=== PATIENT | female | born 1935 | race Caucasian/White ===

== ENCOUNTER 2016-11-17 09:00 | Emergency (ER) | payer OTHER ==
[2016-11-17 09:15] VITALS: TEMP 99; BMI 28.3
[2016-11-17] MEDS ORDERED: NAPROXEN 500 MG TABLET (FP) PO ONE (09:19)
[2016-11-17] MEDS ORDERED: NAPROXEN 500 MG TABLET (FP) ONE (09:22)
[2016-11-17] MEDS ORDERED: RANITIDINE HCL 150 MG TABLET (FP) PO ONE (09:24)
--- NOTE | 2016-11-17 09:25 | PDOC ---
History of Present Illness - General Chief Complaint: Back Pain Stated Complaint: BACK PAIN Time Seen by Provider: 11/17/16 09:03 History Source: Patient Exam Limitations: No Limitations - History of Present Illness Initial Comments: 11/17/16 09:22 81-year-old female with history of hypertension, GERD, lumbar stenosis status post surgery several years ago presents with sciatica of the left side for one week. The patient has a known history of sciatica and reports that this feels like the exact same pain. She denies any trauma. Denies numbness or weakness. Reports that flexion of her back worsens the pain. Denies dysuria or abdominal pain or fevers. She has taken one tablet of ibuprofen 20 mg every 12 hours Past History - Past Medical History Allergies/Adverse Reactions: Allergies Allergy/AdvReac Type Severity Reaction Status Date / Time No Known Allergies Allergy Verified 11/17/16 09:02 Home Medications: Ambulatory Orders Valsartan [Diovan] 160 mg PO DAILY 02/09/12 Amlodipine Besylate 5 mg PO DAILY 07/26/16 Fluoxetine HCl [Prozac] 20 mg PO DAILY 07/26/16 Naproxen Sodium [Aleve] 220 mg PO ASDIR PRN 07/26/16 Pantoprazole Sodium 40 mg PO DAILY 07/26/16 Cyclobenzaprine HCl [Flexeril 10 mg] 10 mg PO Q8H PRN #15 tablet 11/17/16 Naproxen [Naprosyn -] 500 mg PO BID PRN #14 tablet 11/17/16 Prednisone [Deltasone -] 60 mg PO DAILY #12 tablet 11/17/16 Ranitidine HCl [Zantac] 150 mg PO BID PRN #14 tablet 11/17/16 GI Disorders: Yes HTN: Yes Psychiatric Problems: Yes (DEPRESSION) Other medical history: SPINAL STENOSIS,HERNIATED DISC - Psycho/Social/Smoking Cessation Hx Anxiety: No Suicidal Ideation: No Smoking Status: No Smoking History: Never smoked Number of Cigarettes Smoked Daily: 0 Information on smoking cessation initiated: No Hx Alcohol Use: No Drug/Substance Use Hx: No Review of Systems - Review of Systems Able to Perform ROS?: Yes Comments:: 11/17/16 09:24 GENERAL/CONSTITUTIONAL: No fever, weakness. HEAD, EYES, EARS, NOSE AND THROAT: No change in vision. No ear pain or discharge. No sore throat. CARDIOVASCULAR: No chest pain or shortness of breath. RESPIRATORY: No cough, wheezing, or hemoptysis. GASTROINTESTINAL: No abdominal pain, nausea, vomiting, diarrhea, or decreased PO intolerance. GENITOURINARY: No dysuria, frequency, or change in urination. MUSCULOSKELETAL: No joint or muscle swelling or pain. +back pain SKIN: No rash NEUROLOGIC: No headache, vertigo, loss of consciousness, or change in strength/ sensation. ENDOCRINE: No increased thirst. No abnormal weight change. HEMATOLOGIC/LYMPHATIC: No anemia, easy bleeding, or history of blood clots. ALLERGIC/IMMUNOLOGIC: No hives or skin allergy. *Physical Exam - Vital Signs Last Vital Signs Temp Pulse Resp BP Pulse Ox 99 F 77 18 132/100 98 11/17/16 09:05 11/17/16 09:05 11/17/16 09:05 11/17/16 09:05 11/17/16 09:05 - Physical Exam Comments: 11/17/16 09:25 GENERAL: Awake, alert, and fully oriented, in no acute distress. HEAD: No signs of trauma EYES: PERRLA, EOMI, sclera anicteric, conjunctiva clear ENT: Auricles normal inspection, hearing grossly normal, nares patent, oropharynx clear without exudates. NECK: Normal ROM, supple, no lymphadenopathy, JVD, or masses LUNGS: Breath sounds equal, clear to auscultation bilaterally. No wheezes, and no crackles HEART: Regular rate and rhythm, normal S1 and S2, no murmurs, rubs or gallops ABDOMEN: Soft, nontender, normoactive bowel sounds. No guarding, no rebound. No masses BACK: no spinal tenderness or step offs. TTP left lower buttocks. +Straight leg raise 45 degrees on ipsilateral side EXTREMITIES: Normal range of motion, no edema. No clubbing or cyanosis. No cords, erythema, or tenderness NEUROLOGICAL: Cranial nerves II through XII grossly intact. Normal speech, normal gait SKIN: Warm, Dry, normal turgor, no rashes or lesions noted. Medical Decision Making - Medical Decision Making 11/17/16 09:25 Vital Signs Temp Pulse Resp BP Pulse Ox 99 F 77 18 132/100 98 11/17/16 09:05 11/17/16 09:05 11/17/16 09:05 11/17/16 09:05 11/17/16 09:05 This is likely sciatica. Patient likely underdosing pain medications with ibuprofen. We'll trial naproxen and reassess. 11/17/16 10:31 The pain is somewhat alleviated with naproxen and flexeril. Will start a prednisone pack for the 5 days and have pt follow up with ortho. Pt with family. Instructions given that this may likely exacerbate GERD. Will write prescription for zantac as well. Return precautions given. Discharge diagnosis: sciatica I discussed the physical exam findings, ancillary test results and final diagnoses with the patient. I answered all of the patient's questions. The patient was satisfied with the care received and felt comfortable with the discharge plan and treatment plan. The patient will call their primary care physician within 24 hours to arrange follow-up and will return to the Emergency Department with any new, persistant or worsening symptoms. *DC/Admit/Observation/Transfer Diagnosis at time of Disposition: Sciatica Qualifiers: Laterality: left Qualified Code(s): M54.32 - Sciatica, left side - Discharge Dispostion Disposition: HOME Condition at time of disposition: Fair Admit: No - Prescriptions Prescriptions: Prednisone [Deltasone -] 60 mg PO DAILY #12 tablet Cyclobenzaprine HCl [Flexeril 10 mg] 10 mg PO Q8H PRN #15 tablet PRN Reason: Back Pain Naproxen [Naprosyn -] 500 mg PO BID PRN #14 tablet PRN Reason: Back Pain Ranitidine HCl [Zantac] 150 mg PO BID PRN #14 tablet PRN Reason: Acid Reflux - Referrals Referrals: Timoteo Serna MD [Staff Physician] - - Patient Instructions Printed Discharge Instructions: DI for Back Pain With Sciatica, Sciatica ( Alternative Therapy) Additional Instructions: Please take 500 mg naproxen every 12 hours as needed for pain. For additional relief, you may take a tablet of flexeril every 8 hours as needed. Please take 60 mg prednisone for the next 4 days. These medications may cause acid reflux. Continue to take your protonix and you may take 150 mg zantac every 12 hours as needed. Follow up with orthopedics. Call to schedule an appointment.
[2016-11-17] MEDS ORDERED: RANITIDINE HCL 150 MG TABLET (FP) ONE (09:27)
[2016-11-17] MEDS ORDERED: CYCLOBENZAPRINE HCL 10 MG TABLET (FP) PO ONE (09:49)
[2016-11-17] MEDS ORDERED: CYCLOBENZAPRINE HCL 10 MG TABLET (FP) ONE (09:49)
[2016-11-17 10:16] VITALS: BP 146/87; PULSE 70
[2016-11-17] MEDS ORDERED: predniSONE 20 MG TABLET (UD) PO ONE (10:31)
[2016-11-17] MEDS ORDERED: predniSONE 20 MG TABLET (UD) ONE (10:33)
== END 2016-11-17 10:43 | disposition home or self-care (01) ==
LOC: FER 09:00
DX: M54.32 Sciatica, left side (principal); I10 Essential (primary) hypertension; K21.9 Gastro-esophageal reflux disease without esophagitis; M48.06 Spinal stenosis, lumbar region; F32.9 Major depressive disorder, single episode, unspecified
CPT/HCPCS: 99282-25

== ENCOUNTER 2017-04-20 11:15 | Emergency (ER) | payer OTHER ==
[2017-04-20 11:23] VITALS: BP 120/83; PULSE 70; TEMP 98.4; BMI 28.9
--- NOTE | 2017-04-20 11:42 | PDOC ---
History of Present Illness - General Chief Complaint: Respiratory Stated Complaint: COUGH Time Seen by Provider: 04/20/17 11:21 History Source: Patient Exam Limitations: No Limitations - History of Present Illness Initial Comments: 04/20/17 13:30 This patient is an 82-year-old female with a history of hypertension, GERD who presents emergency department with a complaint of cough times several weeks. Patient states her symptoms began as a post nasal drip, and worsened. Patient states she has difficulty sleeping as a result of her coughing. She was on vacation in the ears were general an, cough is severe enough that she was seen by the physician. She was given cough syrup, and azithromycin. She denies fevers, chills. She denies chest pain. She does state that she has muscular lower chest pain related to coughing. She denies lower extremity edema. She saw her primary care physician last and has an appointment on Thursday. She denies ill contacts (with the exception of her dogs) disease. PMH: Hypertension PSH: Patient's: Please see the rest of the chart ALL: NKDA Social: denies tobacco use GENERAL/CONSTITUTIONAL: No: fever, chills, weakness, loss of appetite. HEAD, EYES, EARS, NOSE AND THROAT: No: change in vision, ear pain, discharge, sore throat, throat swelling. CARDIOVASCULAR: No: chest pain, lightheadedness, palpitations, syncope RESPIRATORY: Yes: cough, shortness of breath, No: wheezing, hemoptysis, stridor. GASTROINTESTINAL: No: nausea, vomiting, diarrhea, abdominal cramping, rectal bleeding, constipation. GENITOURINARY: No: dysuria, hematuria, frequency, urgency, flank pain. MUSCULOSKELETAL: No: back pain, neck pain, joint pain, muscle swelling or pain SKIN: No: lesions, pallor, rash or easy bruising. NEUROLOGIC: No: headache, vertigo, paresthesias, weakness ENDOCRINE: No: unexplained weight gain or loss HEMATOLOGIC/LYMPHATIC: No: anemia, easy bleeding, swelling nodes. GENERAL: The patient is in no acute distress. HEAD: Normal with no signs of trauma. EYES: PERRLA, EOMI, sclera anicteric, conjunctiva clear. ENT: Ears normal, nares patent, oropharynx clear without exudates. Moist mucous membranes. NECK: Normal range of motion, supple without lymphadenopathy, JVD, or masses. LUNGS: Breath sounds equal, clear to auscultation bilaterally. No wheezes, and no crackles. HEART:Regular rate and rhythm, normal S1 and S2 without murmur, rub or gallop. ABDOMEN: Soft, nontender, normoactive bowel sounds. No guarding, no rebound. No masses palpable. EXTREMITIES: Normal range of motion, no edema. No clubbing or cyanosis. No erythema, or tenderness. NEUROLOGICAL: Cranial nerves II through XII grossly intact. Normal speech. No focal neurological deficits. MUSCULOSKELETAL: Back non-tender to palpation, no CVA tenderness SKIN: Warm, Dry, normal turgor, no rashes or lesions noted. Past History - Past Medical History Allergies/Adverse Reactions: Allergies Allergy/AdvReac Type Severity Reaction Status Date / Time No Known Allergies Allergy Verified 04/20/17 11:18 Home Medications: Ambulatory Orders Valsartan [Diovan] 160 mg PO DAILY 02/09/12 Amlodipine Besylate 5 mg PO DAILY 07/26/16 Fluoxetine HCl [Prozac] 20 mg PO DAILY 07/26/16 Pantoprazole Sodium 40 mg PO DAILY 07/26/16 Benzonatate [Tessalon Pearls -] 100 mg PO TID PRN #21 capsule 04/20/17 Guaifenesin [Mucinex -] 600 mg PO BID #14 tablet.er 04/20/17 Promethazine HCl/Codeine [Prometh-Codein 6.25-10 mg/5 ml] 5 ml PO ASDIR PRN GI Disorders: Yes (GERD) HTN: Yes Psychiatric Problems: Yes (DEPRESSION) - Psycho/Social/Smoking Cessation Hx Anxiety: No Suicidal Ideation: No Smoking Status: No Smoking History: Former smoker Have you smoked in the past 12 months: No Number of Cigarettes Smoked Daily: 0 Information on smoking cessation initiated: No Hx Alcohol Use: No Drug/Substance Use Hx: No *Physical Exam - Vital Signs Last Vital Signs Temp Pulse Resp BP Pulse Ox 98.4 F 70 18 120/83 98 04/20/17 11:15 04/20/17 11:15 04/20/17 11:15 04/20/17 11:15 04/20/17 11:15 Medical Decision Making - Medical Decision Making 04/20/17 13:33 PT presents with cough and no other sings of illness Will do x ray Will re assess X ray negative Will: start another medication for cough Will ask pt to keep her follow up with her PMD Will ask her to return to the ER for fevers,. chills *DC/Admit/Observation/Transfer Diagnosis at time of Disposition: Cough - Discharge Dispostion Disposition: HOME Condition at time of disposition: Stable Admit: No - Prescriptions Prescriptions: Guaifenesin [Mucinex -] 600 mg PO BID #14 tablet.er Benzonatate [Tessalon Pearls -] 100 mg PO TID PRN #21 capsule PRN Reason: Cough - Referrals Referrals: Malorie Luna MD [Primary Care Provider] - - Patient Instructions Printed Discharge Instructions: DI for Cough -- Adult, Cough (Alternative Therapy) Additional Instructions: Miss Cuadra Thank you for coming in to the ER today Please try new medication for your cough Your chest x ray does not appear to show a pneumonia Please keep your follow up with Dr Teofilo Weaver
== END 2017-04-20 13:50 | disposition home or self-care (01) ==
LOC: FER 11:15
DX: R05 Cough (principal); I10 Essential (primary) hypertension; K21.9 Gastro-esophageal reflux disease without esophagitis; F32.9 Major depressive disorder, single episode, unspecified
CPT/HCPCS: 71020-TC; 99283-25

== ENCOUNTER 2018-09-27 06:07 | Day surgery (SDC) | payer OTHER ==
[2018-09-23 13:44] VITALS: BMI 29.2
[2018-09-27] MEDS ORDERED: LIDOCAINE HCL/PF 2% SDV 5ML VIAL ONE (07:54)
[2018-09-27] MEDS ORDERED: PROPOFOL 20 ML ONE ×3 (07:55)
[2018-09-27] MEDS ORDERED: MIDAZOLAM HCL 2 MG/2 ML SINGLE DOSE VIAL ONE (07:55)
--- NOTE | 2018-09-27 11:10 | OP ---
Operative Note - Note: Operative Date: 09/27/18 Pre-Operative Diagnosis: Left renal stone Operation: Left ESWL Findings: 14 mm lower pole Left renal stone Post-Operative Diagnosis: Same as Pre-op Surgeon: Radhames Blanco Anesthesia: Fractional Estimated Blood Loss (mls): 0
[2018-09-27 12:13] VITALS: BP 134/55; PULSE 71; TEMP 97.4
--- NOTE | 2018-09-27 19:38 | OP ---
DATE OF OPERATION: 09/27/2018 PREOPERATIVE DIAGNOSIS: Left renal stone. POSTOPERATIVE DIAGNOSIS: Left renal stone. PROCEDURE: Left extracorporeal shock wave lithotripsy. ATTENDING: Radhames Dowling MD ANESTHESIA: General. DESCRIPTION OF OPERATION: The patient was brought in the operating room, placed in supine position on the operating room table. Ultrasonography and fluoroscopy were performed. A 14-mm left lower pole stone was identified. Anesthesia and preoperative antibiotics were then administered. Shock wave lithotripsy was then performed. No complications were noted. The disposition of the patient was to the recovery room. Linus [id number]
== END 2018-09-27 11:30 | disposition home or self-care (01) ==
LOC: JASU-SURG 06:07
PROVIDERS: ATTEND Urology
PROC: 0TF4XZZ Fragmentation in Left Kidney Pelvis, External Approach (ICD-10-PCS; principal; 2018-09-27 08:00)
DX: N20.0 Calculus of kidney (principal)

== ENCOUNTER 2018-10-11 06:20 | Day surgery (SDC) | payer OTHER ==
[2018-10-11 07:06] VITALS: TEMP 98
[2018-10-11] MEDS ORDERED: MIDAZOLAM HCL 2 MG/2 ML SINGLE DOSE VIAL ONE (08:27)
--- NOTE | 2018-10-11 09:00 | OP ---
Operative Note - Note: Operative Date: 10/11/18 Pre-Operative Diagnosis: Right renal stone Operation: Right ESWL Findings: x2 5 mm stones of the Right kidney lower pole Post-Operative Diagnosis: Same as Pre-op Surgeon: Radhames Blanco Anesthesia: Fractional Estimated Blood Loss (mls): 0 Operative Report Dictated: Yes
[2018-10-11] MEDS ORDERED: ACETAMINOPHEN 325 MG TABLET (FP) PO PRN (09:26)
[2018-10-11] MEDS ORDERED: ONDANSETRON 4 MG/2 ML VIAL IVPUSH PRN (09:26)
[2018-10-11] MEDS ORDERED: LACTATED RINGERS SOLUTION 1,000 ML IV SCH (09:30)
[2018-10-11 10:46] VITALS: BP 131/75; PULSE 67
--- NOTE | 2018-10-12 09:43 | OP ---
DATE OF OPERATION: 10/11/2018 PREOPERATIVE DIAGNOSIS: Right renal stone. POSTOPERATIVE DIAGNOSIS: Right renal stone. PROCEDURE: Right extracorporeal shockwave lithotripsy. ATTENDING: Radhames Dowling MD ANESTHESIA: Fractional. OPERATION: Patient was brought in the operating room, placed in the supine position on the operating room table. Ultrasonography and fluoroscopy were performed. Two stones were found in the lower pole of the right kidney, each measuring 5 mm. Anesthesia and preoperative antibiotics were then administered. Shockwave lithotripsy was then performed. No complications were noted. The disposition of the patient was to the recovery room. Linus [id number]
== END 2018-10-11 10:47 | disposition home or self-care (01) ==
LOC: JASU-SURG 06:20
PROVIDERS: ATTEND Urology
PROC: 0TF3XZZ Fragmentation in Right Kidney Pelvis, External Approach (ICD-10-PCS; principal; 2018-10-11 08:00)
DX: N20.0 Calculus of kidney (principal)

== ENCOUNTER 2019-06-22 12:44 | Emergency (ER) | payer OTHER ==
[2019-06-22 13:03] VITALS: BP 152/68; PULSE 81; BMI 26.5
--- NOTE | 2019-06-22 14:43 | PDOC ---
History of Present Illness - General Chief Complaint: Injury Stated Complaint: FALL,INJURY Time Seen by Provider: 06/22/19 14:43 History Source: Patient Exam Limitations: No Limitations - History of Present Illness Initial Comments: 84 year old female with PMH HTN presented to ED for fall with head injury. Pt reported she was walking the dog, accidentally tripped over something on the ground, and fell head first into a wrought-iron fence. She denied LOC, vomiting , chest pain, shortness of breath, lightheadedness, palpitations or any prodromal symptoms. Pt reported unknown last tetanus. Past History - Past Medical History Allergies/Adverse Reactions: Allergies Allergy/AdvReac Type Severity Reaction Status Date / Time No Known Allergies Allergy Verified 06/22/19 13:03 Home Medications: Ambulatory Orders Fluoxetine HCl [Prozac] 20 mg PO DAILY 07/26/16 Pantoprazole Sodium 40 mg PO DAILY 07/26/16 Losartan Potassium [Cozaar -] 50 mg PO DAILY 09/23/18 Multivitamin [One-Daily Multi-Vitamin] 1 each PO DAILY 09/27/18 Cephalexin [Keflex] 500 mg PO BID #14 capsule 06/22/19 Cephalexin [Keflex] 500 mg PO QID 7 Days #28 capsule 06/22/19 Ferrous Sulfate [Iron] 325 mg PO ASDIR 06/22/19 Psychiatric Problems: Yes (DEPRESSION) - Surgical History Orthopedic Surgery: Yes (ACHILLES TENDON SX LEFT , TKR LEFT) - Psycho Social/Smoking Cessation Hx Smoking Status: No Smoking History: Never smoked Have you smoked in the past 12 months: No Number of Cigarettes Smoked Daily: 0 If you are a former smoker, when did you quit?: 20 YEARS AGO Hx Alcohol Use: No Drug/Substance Use Hx: No Substance Use Type: None Hx Substance Use Treatment: No Review of Systems - Review of Systems Able to Perform ROS?: Yes Comments:: ROS General: denied fever, chills, generalized weakness. HEENT: denied sore throat, rhinorrhea, ear pain. Cardiovascular: denied chest pain, palpitations, syncope, diaphoresis. Respiratory: denied shortness of breath, cough, sputum production, hemoptysis. Gastrointestinal: denied abdominal pain, nausea, vomiting, diarrhea, constipation, blood in stool. Genitourinary: denied dysuria, increased urinary frequency, hematuria, urinary incontinence, flank pain. Back: denied back pain. Musculoskeletal: denied joint pain, muscle pain, joint swelling. Neurological: admitted to headache. denied dizziness, numbness, tingling, weakness. Integumentary: admitted to laceration. denied rash, abrasion. Hematologic/Lymphatic: denied bruising or bleeding. Constitutional: Well-nourished, Well-developed, appearing stated age. Airway: intact Breathing: bilateral breath sounds Circulation: 2+ carotid pulse B/L HEENT: 8 cm laceration starting at frontal scalp, extending to the forehead above the eyebrow, galea not intact, skull visualized. No facial bones tenderness to palpation. No manuel sign. No raccoon eyes. EOMI. PERRLA. Neck: supple. Full ROM. no midline c-spine tenderness to palpation. No step offs. Cardiovascular: regular heart rhythm. no murmurs. no pericardial friction rub. Chest wall: no seatbelt sign. No tenderness to palpation of anterior chest wall. No deformity to anterior chest wall. Respiratory: clear to auscultation bilaterally. no crackles, rhonchi or wheezing. no stridor. Gastrointestinal: soft, nontender. normal bowel sounds. no rebound, guarding, masses. No ecchymoses. Back: no midline T-spine or L-spine tenderness to palpation. No step offs. Pelvis: lower extremities equal in length without external rotation. No hip tenderness to palpation. Extremities: peripheral pulses intact. no lower extremity edema. Neurological: CN 2-12 grossly intact. moves all four extremities. Psych: awake, alert, oriented x3. follows commands. answers questions appropriately. *Physical Exam - Vital Signs Last Vital Signs Temp Pulse Resp BP Pulse Ox 81 18 152/68 98 06/22/19 12:45 06/22/19 12:45 06/22/19 12:45 06/22/19 12:45 ED Treatment Course - LABORATORY CBC & Chemistry Diagram: 06/22/19 15:30 06/22/19 15:30 Medical Decision Making - Medical Decision Making 84 year old female with above PMH presented to ED for mechanical fall with head injury today. Initial Vital Signs Pulse Resp BP Pulse Ox 81 18 152/68 98 06/22/19 12:45 06/22/19 12:45 06/22/19 12:45 06/22/19 12:45 No tachycardia. No tachypnea. Hypertensive. No hypoxia on room air. EKG performed at 1503: rate 77, regular rhythm, normal axis, normal intervals, flipped T in III. -No prior EKG image to compare Consult: Plastics - Dr. Mcpherson -I spoke with Dr. Mcpherson on the phone, he reported he can come to repair the lac around 1730 -Pt and family informed, reported they agree with plan for care, will wait for plastics to arrive Discontinued Medications Generic Name Dose Route Start Last Admin Trade Name Cornelia PRN Reason Stop Dose Admin Acetaminophen 1,000 mg 06/22/19 15:55 06/22/19 16:09 Ofirmev Injection - IVPB 06/22/19 15:56 1,000 mg ONCE ONE Administration Cefazolin Sodium/Dextrose 2 gm 06/22/19 15:45 06/22/19 15:46 Ancef 2 Gm Premixed Ivpb - IVPB 06/22/19 15:46 2 gm ONCE ONE Administration Diphtheria/Tetanus/Acell Pertussis 0.5 ml 06/22/19 15:31 06/22/19 15:36 Boostrix - IM 06/22/19 15:32 0.5 ml .ONCE ONE Administration 06/22/19 15:56 CT head report: Name: [facility] DEPARTMENT OF RADIOLOGY Phys: Anna Osborne MD : [id number] Age: 84 Sex: F [facility] Acct: [id number] Loc: [address] Exam Date: 06/22/19 Status: [place] [id number] Unit Number: [id number] EXAM#: TYPE/EXAM: RESULT: [id number] CT/HEAD CT WITHOUT CONTRAST CT scan of the brain c-. Status post fall, large laceration. Comparison study. None Findings. Serial axial images of the brain were obtained from foramen magnum to the cranial vertex without intravenous contrast with coronal, sagittal reconstruction.. Left anterior frontal scalp injury without skull fracture. There is no evidence of acute subarachnoid hemorrhage, acute intra-axial or extra-axial fluid collection consistent with subdural or epidural hematoma. No mass effect, midline shift, acute territorial ischemic changes, herniation or edema is present. Normal adams matter white matter differentiation. Age-related loss of volume of the brain parenchyma is observed, associated with moderate supratentorial chronic white matter microangiopathic ischemic changes. Chronic ischemic changes noted in bilateral basal ganglia.. Examination of the bone windows show no fracture. The visualized paranasal sinuses and mastoid air cells are clear. Nonspecific mucoperiosteal thickening in the right matter sinus. The nasal septum is dated to the right side Symmetrical ocular globes. Unremarkable retro-orbital soft tissues. Status post cataract surgeries Impression. No evidence of acute intracranial hemorrhage, edema, midline shift, mass effect, or skull fracture. No CT evidence of acute territorial infarct. Moderate diffuse supratentorial periventricular, centrum semiovale chronic white matter microangiopathic ischemic changes. Chronic basal ganglia ischemic changes. Hypodense foci in the basal ganglia may be related coexisting perivascular spaces. Reported By: Stoney Pierce MD 06/22/19 1405 Pt now reporting Right sided rib pain. Imaging ordered: CXR, R rib series, pelvis XR 06/22/19 16:25 CBC WBC 7.7 K/mm3 (4.0-10.0) 06/22/19 15:30 RBC 4.75 M/mm3 (3.60-5.2) 06/22/19 15:30 Hgb 13.0 GM/dL (10.7-15.3) 06/22/19 15:30 Hct 39.9 % (32.4-45.2) 06/22/19 15:30 MCV 84.0 fl (80-96) 06/22/19 15:30 MCH 27.4 pg (25.7-33.7) 06/22/19 15:30 MCHC 32.6 g/dl (32.0-36.0) 06/22/19 15:30 RDW 25.4 % (11.6-15.6) H 06/22/19 15:30 Plt Count 268 K/MM3 (134-434) 06/22/19 15:30 MPV 6.3 fl (7.5-11.1) L 06/22/19 15:30 Absolute Neuts (auto) 5.5 K/mm3 (1.5-8.0) 06/22/19 15:30 Neutrophils % 71.6 % (42.8-82.8) 06/22/19 15:30 Lymphocytes % 17.7 % (8-40) 06/22/19 15:30 Monocytes % 7.6 % (3.8-10.2) 06/22/19 15:30 Eosinophils % 2.5 % (0-4.5) 06/22/19 15:30 Basophils % 0.6 % (0-2.0) 06/22/19 15:30 Nucleated RBC % 0 % (0-0) 06/22/19 15:30 No leukocytosis. No anemia. CMP Sodium 140 mmol/L (136-145) 06/22/19 15:30 Potassium 3.7 mmol/L (3.5-5.1) 06/22/19 15:30 Chloride 106 mmol/L (98-107) 06/22/19 15:30 Carbon Dioxide 24 mmol/L (21-32) 06/22/19 15:30 Anion Gap 10 MMOL/L (8-16) 06/22/19 15:30 BUN 21.0 mg/dL (7-18) H 06/22/19 15:30 Creatinine 0.8 mg/dL (0.55-1.3) 06/22/19 15:30 Est GFR (CKD-EPI)AfAm 77.37 06/22/19 15:30 Est GFR (CKD-EPI)NonAf 66.76 06/22/19 15:30 Random Glucose 89 mg/dL (74-106) 06/22/19 15:30 Calcium 8.8 mg/dL (8.5-10.1) 06/22/19 15:30 Total Bilirubin 0.4 mg/dL (0.2-1) 06/22/19 15:30 AST 22 U/L (15-37) 06/22/19 15:30 ALT 23 U/L (13-61) 06/22/19 15:30 Alkaline Phosphatase 77 U/L (45-117) 06/22/19 15:30 Creatine Kinase 50 U/L (26-192) 06/22/19 15:30 Troponin I < 0.02 ng/ml (0.00-0.05) 06/22/19 15:30 Total Protein 6.6 g/dl (6.4-8.2) 06/22/19 15:30 Albumin 3.7 g/dl (3.4-5.0) 06/22/19 15:30 No electrolyte abnormalities. No KIMBERLY. No transaminitis. Troponin wnl. 06/22/19 18:34 Dr. Mcpherson has arrived. Imaging reviewed by myself and Dr. Osborne, no rib fractures noted, no hip dislocations, no hip fracture. -Pending official reports 06/22/19 19:00 Laceration in process of being repaired by Dr. Mcpherson, who advised follow up in his office in 5-7 days (Thu// of next week). He advised no water contact for 48 hours, and to apply bacitracin multiple times a day. Pt signed out to night resident. To be discharged after laceration repair is complete. Discharge medications: I spoke with the pt's daughter about wound care and head injury precautions. She reported understanding and agreed with plan for care. Discharge - Discharge Information Problems reviewed: Yes Clinical Impression/Diagnosis: Scalp laceration Qualifiers: Encounter type: initial encounter Qualified Code(s): S01.01XA - Laceration without foreign body of scalp, initial encounter Forehead laceration Qualifiers: Encounter type: initial encounter Qualified Code(s): S01.81XA - Laceration without foreign body of other part of head, initial encounter Fall Qualifiers: Encounter type: initial encounter Qualified Code(s): W19.XXXA - Unspecified fall, initial encounter Condition: Improved Disposition: HOME - Additional Discharge Information Prescriptions: Cephalexin [Keflex] 500 mg PO QID 7 Days #28 capsule Cephalexin [Keflex] 500 mg PO BID #14 capsule - Follow up/Referral Referrals: Morro Hedrick MD [Primary Care Provider] - Jignesh Mcpherson MD [Staff Physician] - - Patient Discharge Instructions Patient Printed Discharge Instructions: DI for Laceration Repair of the Scalp, DI for Laceration Repair -- Complex Suture Additional Instructions: Follow up with your primary care doctor within 3 days. Your care is not complete until you follow up. Bring all paperwork given to you today to your appointment. Follow up with Dr. Mcpherson in 5-7 days - next week thursday or thursday. Take Tylenol over the counter for pain. Take as advised on label. Take prescription as indicated on label. Return to the Emergency Department for increasing pain, visual changes, numbness , tingling, weakness, chest pain, shortness of breath, vomiting, change in mental status or any other new, worsening or concerning symptoms. Wound Care: Keep the affected wound 100% clean and dry for 42 hours. Cover the affected area with a plastic bag/shower cap in the shower. After that period change the dressing daily, and apply bacitracin multiple times a day. When in the shower just let the water run over the area, do not scrub, you do not need soap. Do not submerge yourself in any water (bath, pool, garcia, ocean) until the stitches are removed. Return to the Emergency Department or see your Primary Care Doctor in 7-10 days to have the stitches removed. - Post Discharge Activity
[2019-06-22] MEDS ORDERED: DIPHTH,PERTUSS(ACELL),TET 0.5 ML DISP.SYRIN IM ONE ×2 (15:31→15:33)
[2019-06-22 15:41] LABS: BASO % 0.6 % (0-2.0); EOS % 2.5 % (0-4.5); HEMATOCRIT 39.9 % (32.4-45.2); LYMPH % 17.7 % (8-40); MCH 27.4 pg (25.7-33.7); MCHC 32.6 g/dl (32.0-36.0); MEAN PLT VOLUME 6.3 fl (7.5-11.1); MONO % 7.6 % (3.8-10.2); NEUT % 71.6 % (42.8-82.8); PLATELET COUNT 268 K/MM3 (134-434); RBC 4.75 M/mm3 (3.60-5.2); RDW 25.4 % (11.6-15.6); WHITE BLOOD COUNT 7.7 K/mm3 (4.0-10.0)
[2019-06-22] MEDS ORDERED: CEFAZOLIN 1 GM/D5W 2 GM/100 ML BAG ONE (15:41)
[2019-06-22] MEDS ORDERED: ceFAZolin 2 GRAM PREMIX BAG IVPB ONE (15:45)
[2019-06-22] MEDS ORDERED: ACETAMINOPHEN 1000 MG/100 ML VIAL (NON FORMULARY) IVPB ONE (15:55)
--- NOTE | 2019-06-22 16:00 | PDOC ---
Attending Attestation - Resident Resident Name: Maribell Andrews - ED Attending Attestation I have performed the following: I have examined & evaluated the patient, The case was reviewed & discussed with the resident, I agree w/resident's findings & plan, Exceptions are as noted - HPI HPI: 06/22/19 15:56 Ms. Cuadra is an 84 yo F who presents to the ER via EMS s/p mechanical fall She has a h/o HTN and was in her usual state of health today She was walking her dog when she accidentally tripped, fell forward and struck her face on a wrought-iron fence. She denied LOC, vomiting, chest pain, shortness of breath, lightheadedness, palpitations or any prodromal symptoms. Pt denies visual changes, eye irritation, or eye injury - Physicial Exam PE: 06/22/19 15:58 GENERAL: The patient is in no acute distress, A&O x 3 HEAD: (+) head trauma EYES: PERRLA, EOMI ENT: Ears normal, nares patent, oropharynx clear without exudates. Moist mucous membranes. NECK: Normal range of motion, supple, no midline tenderness to palpation LUNGS: Breath sounds equal, clear to auscultation bilaterally HEART: Regular rate and rhythm, normal S1 and S2 without murmur, rub or gallop. ABDOMEN: Soft, nontender EXTREMITIES: Normal range of motion, pelvis stable NEUROLOGICAL: Cranial nerves II through XII grossly intact. Normal speech. No focal neurological deficits. MUSCULOSKELETAL: Back non-tender to palpation, no CVA tenderness SKIN: 10 cm vertical laceration of the forehead through galea down to the bone, no active bleeding noted - Medical Decision Making 06/22/19 16:00 Laboratory Tests 06/22/19 15:30 WBC 7.7 Hgb 13.0 Hct 39.9 Plt Count 268 EKG - NSR rate of 77 bpm, axis nml, intervals nml, no st elevation or depression , poor R wave progression CT head- No acute intracranial hemorrhage, no fracture seen, chronic microvascular ischemic changes seen 06/22/19 16:[address] Mcpherson He will assess and repair this patient in the ER given how extensive her laceration is Ancef given Dr. Harris has repaired this patient's laceration Pt tolerated this well Will discharge to home Follow up with Dr Mcpherson in 7-10 days Clinical impression: Mechanical fall Head trauma laceration
[2019-06-22] MEDS ORDERED: ACETAMINOPHEN INJECTION 100 ML IVPB ONE (16:08)
[2019-06-22 16:13] LABS: ALBUMIN 3.7 g/dl (3.4-5.0); ALK PHOS 77 U/L (45-117); ANION GAP 10 MMOL/L (8-16); BILIRUBIN,TOTAL 0.4 mg/dL (0.2-1); CALCIUM 8.8 mg/dL (8.5-10.1); CHLORIDE 106 mmol/L (98-107); CO2 24 mmol/L (21-32); CREATININE 0.8 mg/dL (0.55-1.3); GLUCOSE,RANDOM 89 mg/dL (74-106); POTASSIUM 3.7 mmol/L (3.5-5.1); SGOT/AST 22 U/L (15-37); SGPT/ALT 23 U/L (13-61); SODIUM 140 mmol/L (136-145); TOT PROT 6.6 g/dl (6.4-8.2)
[2019-06-22] MEDS ORDERED: LIDOCAINE 1%/EPI 1:100000 (20 ML MULTI DOSE VIAL) ONE (18:33)
[2019-06-22] MEDS ORDERED: LIDOCAINE 1%/EPI 1:100000 (20 ML MULTI DOSE VIAL) IJ ONE (18:33)
--- NOTE | 2019-06-22 19:57 | PDOC ---
*Physical Exam - Vital Signs Last Vital Signs Temp Pulse Resp BP Pulse Ox 81 18 152/68 98 06/22/19 12:45 06/22/19 12:45 06/22/19 12:45 06/22/19 12:45 ED Treatment Course - LABORATORY CBC & Chemistry Diagram: 06/22/19 15:30 06/22/19 15:30 - ADDITIONAL ORDERS Additional order review: Laboratory Results 06/22/19 15:30 Sodium 140 Potassium 3.7 Chloride 106 Carbon Dioxide 24 Anion Gap 10 BUN 21.0 H Creatinine 0.8 Est GFR (CKD-EPI)AfAm 77.37 Est GFR (CKD-EPI)NonAf 66.76 Random Glucose 89 Calcium 8.8 Total Bilirubin 0.4 AST 22 ALT 23 Alkaline Phosphatase 77 Creatine Kinase 50 Troponin I < 0.02 Total Protein 6.6 Albumin 3.7 06/22/19 15:30 RBC 4.75 MCV 84.0 MCHC 32.6 RDW 25.4 H MPV 6.3 L Neutrophils % 71.6 Lymphocytes % 17.7 Monocytes % 7.6 Eosinophils % 2.5 Basophils % 0.6 - Medications Given in the ED: ED Medications Discontinued Medications Generic Name Dose Route Start Last Admin Trade Name Freq PRN Reason Stop Dose Admin Acetaminophen 1,000 mg 06/22/19 15:55 06/22/19 16:09 Ofirmev Injection - IVPB 06/22/19 15:56 1,000 mg ONCE ONE Administration Cefazolin Sodium/Dextrose 2 gm 06/22/19 15:45 06/22/19 15:46 Ancef 2 Gm Premixed Ivpb - IVPB 06/22/19 15:46 2 gm ONCE ONE Administration Diphtheria/Tetanus/Acell Pertussis 0.5 ml 06/22/19 15:31 06/22/19 15:36 Boostrix - IM 06/22/19 15:32 0.5 ml .ONCE ONE Administration Lidocaine/Epinephrine 10 ml 06/22/19 18:33 06/22/19 18:45 Xylocaine 1%-Epi 1:100,000 IJ 06/22/19 18:34 1 applic ONCE ONE Administration Medical Decision Making - Medical Decision Making 06/22/19 19:[address] Andrews. Patient is an 84 yo female s/p mechanical fall earlier today. Patient evaluated by plastics with suture closure and will f/u in office. No concern for further process and discharging to home. Discharge - Discharge Information Problems reviewed: Yes Clinical Impression/Diagnosis: Scalp laceration Qualifiers: Encounter type: initial encounter Qualified Code(s): S01.01XA - Laceration without foreign body of scalp, initial encounter Forehead laceration Qualifiers: Encounter type: initial encounter Qualified Code(s): S01.81XA - Laceration without foreign body of other part of head, initial encounter Fall Qualifiers: Encounter type: initial encounter Qualified Code(s): W19.XXXA - Unspecified fall, initial encounter Condition: Improved Disposition: HOME - Additional Discharge Information Prescriptions: Cephalexin [Keflex] 500 mg PO QID 7 Days #28 capsule Cephalexin [Keflex] 500 mg PO BID #14 capsule - Follow up/Referral Referrals: Jignesh Mcpherson MD [Staff Physician] - Morro Hedrick MD [Primary Care Provider] - - Patient Discharge Instructions Patient Printed Discharge Instructions: DI for Laceration Repair of the Scalp, DI for Laceration Repair -- Complex Suture Additional Instructions: Follow up with your primary care doctor within 3 days. Your care is not complete until you follow up. Bring all paperwork given to you today to your appointment. Follow up with Dr. Mcpherson in 5-7 days - next week thursday or thursday. Take Tylenol over the counter for pain. Take as advised on label. Take prescription as indicated on label. Return to the Emergency Department for increasing pain, visual changes, numbness , tingling, weakness, chest pain, shortness of breath, vomiting, change in mental status or any other new, worsening or concerning symptoms. Wound Care: Keep the affected wound 100% clean and dry for 42 hours. Cover the affected area with a plastic bag/shower cap in the shower. After that period change the dressing daily, and apply bacitracin multiple times a day. When in the shower just let the water run over the area, do not scrub, you do not need soap. Do not submerge yourself in any water (bath, pool, garcia, ocean) until the stitches are removed. Return to the Emergency Department or see your Primary Care Doctor in 7-10 days to have the stitches removed. - Post Discharge Activity
--- NOTE | 2019-06-22 20:02 | PDOC ---
*Physical Exam - Vital Signs Last Vital Signs Temp Pulse Resp BP Pulse Ox 81 18 152/68 98 06/22/19 12:45 06/22/19 12:45 06/22/19 12:45 06/22/19 12:45 ED Treatment Course - LABORATORY CBC & Chemistry Diagram: 06/22/19 15:30 06/22/19 15:30 - ADDITIONAL ORDERS Additional order review: Laboratory Results 06/22/19 15:30 Sodium 140 Potassium 3.7 Chloride 106 Carbon Dioxide 24 Anion Gap 10 BUN 21.0 H Creatinine 0.8 Est GFR (CKD-EPI)AfAm 77.37 Est GFR (CKD-EPI)NonAf 66.76 Random Glucose 89 Calcium 8.8 Total Bilirubin 0.4 AST 22 ALT 23 Alkaline Phosphatase 77 Creatine Kinase 50 Troponin I < 0.02 Total Protein 6.6 Albumin 3.7 06/22/19 15:30 RBC 4.75 MCV 84.0 MCHC 32.6 RDW 25.4 H MPV 6.3 L Neutrophils % 71.6 Lymphocytes % 17.7 Monocytes % 7.6 Eosinophils % 2.5 Basophils % 0.6 - Medications Given in the ED: ED Medications Discontinued Medications Generic Name Dose Route Start Last Admin Trade Name Freq PRN Reason Stop Dose Admin Acetaminophen 1,000 mg 06/22/19 15:55 06/22/19 16:09 Ofirmev Injection - IVPB 06/22/19 15:56 1,000 mg ONCE ONE Administration Cefazolin Sodium/Dextrose 2 gm 06/22/19 15:45 06/22/19 15:46 Ancef 2 Gm Premixed Ivpb - IVPB 06/22/19 15:46 2 gm ONCE ONE Administration Diphtheria/Tetanus/Acell Pertussis 0.5 ml 06/22/19 15:31 06/22/19 15:36 Boostrix - IM 06/22/19 15:32 0.5 ml .ONCE ONE Administration Lidocaine/Epinephrine 10 ml 06/22/19 18:33 06/22/19 18:45 Xylocaine 1%-Epi 1:100,000 IJ 06/22/19 18:34 1 applic ONCE ONE Administration Discharge - Discharge Information Clinical Impression/Diagnosis: Scalp laceration, Forehead laceration, Fall Condition: Improved Disposition: HOME - Additional Discharge Information Prescriptions: Cephalexin [Keflex] 500 mg PO QID 7 Days #28 capsule - Follow up/Referral Referrals: Jignesh Mcpherson MD [Staff Physician] - Morro Hedrick MD [Primary Care Provider] - - Patient Discharge Instructions Patient Printed Discharge Instructions: DI for Laceration Repair of the Scalp, DI for Laceration Repair -- Complex Suture Additional Instructions: Follow up with your primary care doctor within 3 days. Your care is not complete until you follow up. Bring all paperwork given to you today to your appointment. Follow up with Dr. Mcpherson in 5-7 days - next week thursday or thursday. Take Tylenol over the counter for pain. Take as advised on label. Take prescription as indicated on label. Return to the Emergency Department for increasing pain, visual changes, numbness , tingling, weakness, chest pain, shortness of breath, vomiting, change in mental status or any other new, worsening or concerning symptoms. Wound Care: Keep the affected wound 100% clean and dry for 42 hours. Cover the affected area with a plastic bag/shower cap in the shower. After that period change the dressing daily, and apply bacitracin multiple times a day. When in the shower just let the water run over the area, do not scrub, you do not need soap. Do not submerge yourself in any water (bath, pool, garcia, ocean) until the stitches are removed. Return to the Emergency Department or see your Primary Care Doctor in 7-10 days to have the stitches removed. - Post Discharge Activity
--- NOTE | 2019-06-23 13:35 | EKG ---
Test Reason : Blood Pressure : / mmHG Vent. Rate : 077 BPM Atrial Rate : 077 BPM P-R Int : 144 ms QRS Dur : 080 ms QT Int : 384 ms P-R-T Axes : 041 -10 010 degrees QTc Int : 434 ms NORMAL SINUS RHYTHM POSSIBLE ANTERIOR INFARCT , AGE UNDETERMINED ABNORMAL ECG NO PREVIOUS ECGS AVAILABLE Confirmed by SOCO FIERRO, SERA ([id number]) on 06/23/2019 1:35:31 PM Referred By: Confirmed By:SERA WAN MD
--- NOTE | 2019-06-24 11:06 | OP ---
DATE OF OPERATION: 06/22/2019 PROCEDURE: An 8-cm complex forehead laceration washout, repair, 1-cm complex scalp laceration, washout, repair, and 1-cm left upper eyelid laceration complex washout and repair. ATTENDING SURGEON: Aquilino Collado MD The patient is seen at the request of referring physician, Dr. Nimisha Osborne. HISTORY: This is an 84-year-old female who suffered a fall with a complex laceration vertically oriented involving the forehead, scalp, and left upper eyelid. Brought into [facility] for evaluation and treatment. PAST MEDICAL HISTORY: Noncontributory. PAST SURGICAL HISTORY: Noncontributory. REVIEW OF SYSTEMS: Negative for any bleeding, coagulopathy, recent fevers, infection, change in mental status, . PHYSICAL EXAMINATION: Head and Neck: Atraumatic with the above-described laceration, which is full thickness involving skin, subcutaneous tissue, frontalis muscle, scalp, galea, and orbicularis oculi muscle. The bare calvarium is exposed. This measures a centimeter into the eyelid, a centimeter into the scalp, and then 8 cm across the forehead. The remainder of head and neck exam is, otherwise, atraumatic. Abdomen: Soft and nontender. Extremities: Warm and well perfused. Heart: Regular rate and rhythm. Lungs: Clear to auscultation. The patient is counseled on all risks, benefits, and alternatives to washout and repair of lacerations, understands, and agrees to proceed. DESCRIPTION OF PROCEDURE: The area is given a 12-mL 1% lidocaine with 1:100,000 epinephrine block. After which the wound was copiously irrigated with normal saline. The full extent of the laceration is excised for straight line closure. This was done through the eyelid, eyebrow, and scalp. The closure is initially performed with a running, locking closure of the frontalis muscle and galea within the forehead laceration, the scalp galea within the scalp laceration, and the orbicularis oculi muscle within the upper eyelid laceration. Once these individual muscle layers were repaired, the upper eyelid is addressed 1st. The dermis is approximated with series of interrupted, buried, deep dermal 5-0 Vicryl suture. The skin is then approximated with a series of interrupted 5-0 nylon suture. The scalp is then repaired after the galea is completed. The dermis approximated with a series of interrupted 4-0 Vicryl suture followed by a running 4-0 nylon suture. The forehead laceration is then finally repaired. This is an 8-cm vertically oriented laceration after completion of repair of the frontalis muscle. The skin is then repaired with a series of interrupted, buried, deep dermal 5-0 Vicryl suture followed by a running 5-0 nylon suture. Several interrupted sutures were placed to perfectly align the closure. Dressings were placed with Steri-Strips. The wound care is discussed. Patient is started on Keflex. Follow up with Dr. Collado in 5-7 days. AQUILINO COLLADO M.D. [id number] cc: Nimisha Osborne MD
== END 2019-06-22 20:07 | disposition home or self-care (01) ==
LOC: JER 12:44
PROC: 3E033NZ Introduction of Analgesics, Hypnotics, Sedatives into Peripheral Vein, Percutaneous Approach (ICD-10-PCS; principal; 2019-06-22)
PROC: 3E03329 Introduction of Other Anti-infective into Peripheral Vein, Percutaneous Approach (ICD-10-PCS; 2019-06-22)
PROC: 3E0234Z Introduction of Serum, Toxoid and Vaccine into Muscle, Percutaneous Approach (ICD-10-PCS; 2019-06-22)
DX: S01.01XA Laceration without foreign body of scalp, initial encounter (principal); W01.0XXA Fall on same level from slipping, tripping and stumbling without subsequent striking against object, initial encounter; Y93.89 Activity, other specified; Y92.89 Other specified places as the place of occurrence of the external cause; F32.9 Major depressive disorder, single episode, unspecified; Z87.891 Personal history of nicotine dependence; I10 Essential (primary) hypertension
CPT/HCPCS: 36415; 70450-TC; 71046-TC-FY; 71101-TC-RT-FY; 72170-TC-FY; 80053; 82550; 84484; 85025; 90715; 93005; 93010; 99283-25; J0131

== ENCOUNTER 2019-08-26 17:40 | Emergency (ER) | payer OTHER ==
[2019-08-26 17:50] VITALS: TEMP 97.7; BMI 29.2
--- NOTE | 2019-08-26 19:37 | PDOC ---
History of Present Illness - General Chief Complaint: Lightheaded Stated Complaint: DIZZINESS Time Seen by Provider: 08/26/19 18:15 History Source: Patient, Family Exam Limitations: No Limitations - History of Present Illness Initial Comments: 84F PMH HTN c/o 2 weeks of vertiginous symptoms with development of nausea in the past few days. Vertigo described as a low constant at baseline but acutely worsens for seconds when pt moves her head. Pt has h/o anemia and was taken off Fe supplements recently; concern it might be related. Denies visual and auditory symptoms, numbess, tingling, focal weakness. Denies cp/sob, vomiting, diarrhea, poor PO intake, urinary sx. Has tried 12.5 OTC meclizine w/o relief. Past History - Past Medical History Allergies/Adverse Reactions: Allergies Allergy/AdvReac Type Severity Reaction Status Date / Time No Known Allergies Allergy Verified 08/26/19 17:50 Home Medications: Ambulatory Orders Fluoxetine HCl [Prozac] 20 mg PO DAILY 07/26/16 Pantoprazole Sodium 40 mg PO DAILY 07/26/16 Losartan Potassium [Cozaar -] 50 mg PO DAILY 09/23/18 Multivitamin [One-Daily Multi-Vitamin] 1 each PO DAILY 09/27/18 Cephalexin [Keflex] 500 mg PO BID #14 capsule 06/22/19 Cephalexin [Keflex] 500 mg PO QID 7 Days #28 capsule 06/22/19 Ferrous Sulfate [Iron] 325 mg PO ASDIR 06/22/19 Meclizine HCl 25 mg PO BID PRN #30 tablet 08/26/19 Anemia: Yes Asthma: No Cancer: No Cardiac Disorders: No CVA: No COPD: No CHF: No Dementia: No Diabetes: No GI Disorders: Yes Disorders: No HTN: Yes Hypercholesterolemia: No Liver Disease: No Psychiatric Problems: Yes (DEPRESSION) Seizures: No Thyroid Disease: No - Surgical History Abdominal Surgery: No Appendectomy: No Cardiac Surgery: No Cholecystectomy: No Lung Surgery: No Neurologic Surgery: No Orthopedic Surgery: Yes (ACHILLES TENDON SX LEFT , TKR LEFT) - Psycho Social/Smoking Cessation Hx Smoking Status: No Smoking History: Never smoked Have you smoked in the past 12 months: No Number of Cigarettes Smoked Daily: 0 If you are a former smoker, when did you quit?: 20 YEARS AGO Hx Alcohol Use: No Drug/Substance Use Hx: No Substance Use Type: None Hx Substance Use Treatment: No Review of Systems - Review of Systems Able to Perform ROS?: Yes Comments:: CONSTITUTIONAL: Denies F / C HEENT: Endorses vertigo. Denies changes in vision / hearing RESP: Denies SOB CARD: Denies chest pain, palpitations GI: Endorses Nausea. Denies V / D, abdominal pain, bloody stool, inability to tolerate PO : Denies dysuria, frequency SKIN: Denies rashes NEURO: Denies numbness, tingling, weakness MSK: Denies back pain *Physical Exam - Vital Signs Last Vital Signs Temp Pulse Resp BP Pulse Ox 97.7 F 69 18 186/82 H 97 08/26/19 17:46 08/26/19 17:46 08/26/19 17:46 08/26/19 17:46 08/26/19 18:30 - Physical Exam GEN: Well appearing, NAD, comfortable. AAOx3 HEENT: NC/AT, CN II-XII grossly intact. EOMI, PERRLA. No facial asymmetry. Moist mucous membranes. Normal voice. Supple neck w/ FROM. EAC clear, nonoccluded, TM clear b/l. CV: S1/S2, RRR, no m/r/g LUNG: CTAB, no wheezes, crackles, rales, rhonchi. GI: soft, ndnt, +BS, no guarding, no rebound. No masses. There is a surgical scar from prior with a nonpurulent non-draining wound w/o surrounding erythema (pt states this is chronic) EXTREMITIES: No LE edema. No obvious deformities of all extremities. SKIN: warm, dry, normal turgor PSYCH: normal mood and affect; pleasant. NEURO: Moving all extremities well. FROM UE and LE b/l. 5/5 UE strength b/l. 5/ 5 LE strength b/l. Sensation symmetric and intact throughout. No ataxia on FTN. No pronator drift. Unsteady when standing w/ feet together eyes closed but did not fall any direction. Ambulates w/ normal gait. Limited Selvin-hallpike revealed worsening sx with head turned to right side. ED Treatment Course - LABORATORY CBC & Chemistry Diagram: 08/26/19 20:28 08/26/19 20:28 - RADIOLOGY Radiology Studies Ordered: Category Date Time Status HEAD CT WITHOUT CONTRAST [CT] Stat CT Scan 08/26/19 19:17 Ordered CHEST X-RAY PORTABLE* [RAD] Stat Radiology 08/26/19 19:20 Ordered Medical Decision Making - Medical Decision Making 08/26/19 19:36 84F c/o 2 weeks of vertiginous sx w/ nausea. DDx - likely peripheral cause; r/o cardiac, central, lytes, anemia. - CBC, CMP, Cardiac - EKG - CXR - CT Head - Meclizine 25 08/26/19 20:57 CXR w/o acute pathology by ED team interpretation EKG 08/26/19 HR 68 CO 140 QRS 80 QTc 433 NSR 08/26/19 21:39 labs reviewed, reassuring 08/26/19 21:57 CT head w/o acute pathology Pt feeling much better DC home w/ return precautions, PCP f/u, and meclizine 08/26/19 22:41 Pt was got up to leave ED and felt too unsteady to walk reversed DC admit for persistent vertigo and inability to ambulate safely 08/26/19 23:37 Patient requested to leave AMA. Patient is determined to be of sound mind and reasoning. The patient fully understands the care they are refusing and the risks associated with leaving before complete medical evaluation as explained by the medical team. The patient has been provided with a discharge summary, return precautions, and the reassurance that the Emergency Department will resume workup if the patient changes their mind. Immediate primary care follow up has been urged. Discharge - Discharge Information Problems reviewed: Yes Clinical Impression/Diagnosis: Vertigo Condition: Stable Disposition: AGAINST MEDICAL ADVICE - Additional Discharge Information Prescriptions: Meclizine HCl 25 mg PO BID PRN #30 tablet PRN Reason: Vertigo - Follow up/Referral Referrals: Morro Hedrick MD [Primary Care Provider] - - Patient Discharge Instructions Patient Printed Discharge Instructions: DI for Vertigo Additional Instructions: You are leaving against medical advice and refusing evaluation and treatment of persistent vertigo. It is essential that you follow up with your primary care physician within the next 1-3 days. We are sending meclizine to your pharmacy, please pick it up and take as prescribed as needed. Please return to the Emergency Department if you change your mind and wish to continue evaluation of your symptoms or you experience worsening symptoms or develop new or concerning symptoms. - Post Discharge Activity
[2019-08-26] MEDS ORDERED: MECLIZINE HCL 25 MG TABLET (FP) PO ONE (19:38)
[2019-08-26] MEDS ORDERED: SODIUM CHLORIDE 0.9% 500 ML INFUS.BAG IV ONE (20:33)
[2019-08-26 20:47] LABS: BASO % 0.5 % (0-2.0); EOS % 5.5 % (0-4.5); HEMOGLOBIN 14.3 GM/dL (10.7-15.3); LYMPH % 31.4 % (8-40); MCH 30.4 pg (25.7-33.7); MEAN CELL VOLUME 89.3 fl (80-96); MEAN PLT VOLUME 6.2 fl (7.5-11.1); MONO % 10.5 % (3.8-10.2); NEUT % 52.1 % (42.8-82.8); PLATELET COUNT 244 K/MM3 (134-434); RDW 14.9 % (11.6-15.6); WHITE BLOOD COUNT 6.9 K/mm3 (4.0-10.0)
[2019-08-26] MEDS ORDERED: MECLIZINE HCL 25 MG TABLET (FP) ONE (20:59)
[2019-08-26 21:22] LABS: ALBUMIN 3.8 g/dl (3.4-5.0); ALK PHOS 72 U/L (45-117); ANION GAP 8 MMOL/L (8-16); BILIRUBIN,TOTAL 0.5 mg/dL (0.2-1); BLOOD UREA NITROGEN 17.7 mg/dL (7-18); CALCIUM 8.9 mg/dL (8.5-10.1); CHLORIDE 107 mmol/L (98-107); CO2 27 mmol/L (21-32); CREATININE 0.8 mg/dL (0.55-1.3); GLUCOSE,RANDOM 87 mg/dL (74-106); POTASSIUM 3.5 mmol/L (3.5-5.1); SGOT/AST 20 U/L (15-37); SGPT/ALT 26 U/L (13-61); SODIUM 142 mmol/L (136-145); TOT PROT 6.9 g/dl (6.4-8.2)
--- NOTE | 2019-08-26 22:12 | PDOC ---
Documentation entered by Diana Choi SCRIBE, acting as scribe for Anna Osborne MD. Anna Osborne MD: This documentation has been prepared by the Jimbo stanton Adrianna, SCRIBE, under my direction and personally reviewed by me in its entirety. I confirm that the documentation accurately reflects all work, treatment, procedures, and medical decision making performed by me. Attending Attestation - Resident Resident Name: Chuy Davalos - ED Attending Attestation I have performed the following: I have examined & evaluated the patient, The case was reviewed & discussed with the resident, I agree w/resident's findings & plan, Exceptions are as noted - HPI HPI: The patient is an 84 year old female, with a significant PMH of anemia, HTN and depression, who presents to the ED for evaluation of vertigo for 2 weeks. Patient complains of room-spinning dizziness, that is exacerbated with moving her head. She endorses associated nausea over the past two days. Patient is anemic, was removed off her iron supplements recently, and believes this could be causal of her symptoms. She has tried meclizine without any relief of symptoms. Denies any changes in vision, numbness, tingling, or focal weakness. Patient notes the dizziness has resolved while in the ED. Allergies: NKA, NKDA Surgical History: Left achilles tendon repair, left TKR Social History: Former smoker (quit 20 years ago). Denies EtOH or illicit drug use - Physicial Exam PE: 08/26/19 19:58 GENERAL: The patient is in no acute distress. ENT: Ears normal, nares patent, oropharynx clear without exudates. Moist mucous membranes. No tonsillar enlargement, no exudates NECK: Normal range of motion, supple, no nuchal rigidity (+) LAD LUNGS: Breath sounds equal, clear to auscultation bilaterally. No wheezes, and no crackles. HEART:Regular rate and rhythm, normal S1 and S2 without murmur, rub or gallop. ABDOMEN: Soft, nontender, normoactive bowel sounds. EXTREMITIES: Normal range of motion, no edema. NEUROLOGICAL: Cranial nerves II through XII grossly intact. Normal speech. No focal neurological deficits. NEURO: Mental status: The patient is oriented x3. Cranial nerves: Cranial nerves II through XII are intact Motor: The upper extremities are 5 over 5 in all muscle groups. The lower extremities are 5 over 5 in all muscle groups. Sensation: Sensation is intact to light touch throughout. Cerebellar: Rlbbqr-tidexo-mhio is normal in both upper extremities. Heel-knee- banuelos is normal in both lower extremities. Reflexes: 2+ and symmetric in the upper and lower extremities. Gait: Normal. Heel and toe walking deferred SKIN: Warm, Dry, normal turgor, no rashes or lesions noted. - Medical Decision Making 08/26/19 19:59 Ms. Cuadra is a johana 84-year-old female presenting to the emergency department with a complaint of vertigo which is been present for approximately 2 weeks. Her symptoms have been intermittent. Last time she had these episodes was approximately 3 years ago. She took meclizine 12.5 mg prior to arrival to the ER. She continues to be vertiginous. Which prompted her visit Patient is neurologically intact, demonstrates no ataxia, no cranial nerve deficits. In fact upon my examination her vertigo had largely resolved. Benign positional vertigo, Mnire's, labyrinthitis, posterior CVA/mass We will do: Labs, EKG, CT head Meclizine Reassess EKG: Normal sinus rhythm, rate of 68 bpm, axis is normal, intervals are normal, no ST elevation or depression, T waves are upright 08/26/19 22:08 08/26/19 22:09 Laboratory Tests 08/26/19 08/26/19 20:28 20:28 Hgb 14.3 Hct 42.0 BUN 17.7 Creatinine 0.8 Creatine Kinase 41 Troponin I < 0.02 CT head: No CT evidence of acute intracranial pathology Punctate chronic bilateral basilar ganglia infarcts Moderate periventricular and subcortical chronic microvascular ischemic change 08/26/19 22:10 Patient remains somewhat vertiginous. Plan will be to admit. Case reviewed with hospitalist They will come and see her Patient now unwilling to stay in the hospital She will leave AMA Clinical impression: Benign positional vertigo, initial presentation
[2019-08-26 22:38] VITALS: BP 157/73; PULSE 157
--- NOTE | 2019-08-27 13:33 | EKG ---
Test Reason : Blood Pressure : / mmHG Vent. Rate : 068 BPM Atrial Rate : 068 BPM P-R Int : 140 ms QRS Dur : 080 ms QT Int : 408 ms P-R-T Axes : 058 -12 023 degrees QTc Int : 433 ms NORMAL SINUS RHYTHM INFERIOR INFARCT , AGE UNDETERMINED POSSIBLE ANTERIOR INFARCT (CITED ON OR BEFORE 22-JUN-2019) ABNORMAL ECG WHEN COMPARED WITH ECG OF 22-JUN-2019 15:03, NO SIGNIFICANT CHANGE WAS FOUND Confirmed by MD LETI, HERNÁN ([id number]) on 08/27/2019 1:32:51 PM Referred By: Confirmed By:HERNÁN LANDEROS MD
== END 2019-08-27 00:19 | disposition left against medical advice (07) ==
LOC: JER 17:40
DX: R42 Dizziness and giddiness (principal); I10 Essential (primary) hypertension; F32.9 Major depressive disorder, single episode, unspecified
CPT/HCPCS: 36415; 70450-TC; 71045-TC-FY; 80053; 82550; 83735; 84484; 85025; 93005; 93010; 99284-25

== ENCOUNTER 2019-11-22 20:21 | Emergency (ER) | payer OTHER ==
--- NOTE | 2019-11-22 20:43 | PDOC ---
Rapid Medical Evaluation Chief Complaint: SIRS, Suspected/Possible Time Seen by Provider: 11/22/19 20:30 Medical Evaluation: Allergies Allergy/AdvReac Type Severity Reaction Status Date / Time No Known Allergies Allergy Verified 08/26/19 17:50 11/22/19 20:38 c/o fever since today tmax 102. denies respiratory symptoms reports feeling faint/ unwell/ denies Pe: patient alert breath sounds clear. A: fever p: UA/ urine culture
[2019-11-22 20:46] VITALS: PULSE 73; TEMP 97.5; BMI 29.2
--- NOTE | 2019-11-22 20:54 | PDOC ---
History of Present Illness - General Chief Complaint: Blood Pressure Problem Stated Complaint: FEVER Time Seen by Provider: 11/22/19 20:30 - History of Present Illness Initial Comments: HPI: 84yo F with PMH of HTN, vertigo, depression presenting with fatigue. Triage BP noted to be elevated at 202/80. Patient reports adherence to her anti- hypertensive medicine, Losartan 50mg. No recent dose changes in medications. Does not check her blood pressure regularly at home. Has felt "tired" for the past couple days. A family member checked her temperature and found it to be 99.6 which concerned the patient. No recent falls or syncope. No urinary symptoms or cough. Endorses intermittent positional vertigo which is consistent with her baseline. No headaches. Denies fevers, chills, chest pain, or shortness of breath. PCP: Dr. Morro Hedrick ROS: Constitutional: no fever, no chills HEENT: no throat pain, no dysphagia Cardiovascular: no chest pain, no palpitations Respiratory: no cough, no shortness of breath Gastrointestinal: no abdominal pain, no nausea Genitourinary: no dysuria, no hematuria Musculoskeletal: no myalgia, no arthralgia Skin: no rash, no itching Neurologic: no headache, +weakness Psych: no agitation, no anxiety PE: General: Awake, alert, and fully oriented, in no acute distress Head: No signs of trauma Eyes: EOMI, sclera anicteric ENT: Moist mucus membranes Neck: Normal ROM, supple Lungs: Lungs clear, Normal breath sounds Cardio: Regular rhythm, S1 and S2 present Abdomen: Soft, nontender Extremities: Normal range of motion, Distal pulses present, No calf tenderness Skin: Warm, Dry, normal turgor Neurologic: Cranial nerves II through XII grossly intact. Normal speech ED Course/MDM: DDX including but not limited to hypertensive urgency/emergency, UTI, ACS, PNA, anemia, metabolic derangement Labs, EKG, CXR 11/22/19 20:54 CBC WBC 8.0 K/mm3 (4.0-10.0) 11/22/19 23:00 RBC 4.68 M/mm3 (3.60-5.2) 11/22/19 23:00 Hgb 14.9 GM/dL (10.7-15.3) 11/22/19 23:00 Hct 43.5 % (32.4-45.2) 11/22/19 23:00 MCV 92.9 fl (80-96) 11/22/19 23:00 MCH 31.9 pg (25.7-33.7) 11/22/19 23:00 MCHC 34.3 g/dl (32.0-36.0) 11/22/19 23:00 RDW 13.7 % (11.6-15.6) 11/22/19 23:00 Plt Count 266 K/MM3 (134-434) 11/22/19 23:00 MPV 6.1 fl (7.5-11.1) L 11/22/19 23:00 Absolute Neuts (auto) 4.2 K/mm3 (1.5-8.0) 11/22/19 23:00 Neutrophils % 53.1 % (42.8-82.8) 11/22/19 23:00 Lymphocytes % 26.8 % (8-40) 11/22/19 23:00 Monocytes % 11.4 % (3.8-10.2) H 11/22/19 23:00 Eosinophils % 8.2 % (0-4.5) H 11/22/19 23:00 Basophils % 0.5 % (0-2.0) 11/22/19 23:00 Nucleated RBC % 0 % (0-0) 11/22/19 23:00 No leukocytosis or anemia CMP Sodium 138 mmol/L (136-145) 11/22/19 23:00 Potassium 4.0 mmol/L (3.5-5.1) 11/22/19 23:00 Chloride 105 mmol/L (98-107) 11/22/19 23:00 Carbon Dioxide 28 mmol/L (21-32) 11/22/19 23:00 Anion Gap 6 MMOL/L (8-16) L 11/22/19 23:00 BUN 22.2 mg/dL (7-18) H 11/22/19 23:00 Creatinine 0.8 mg/dL (0.55-1.3) 11/22/19 23:00 Est GFR (CKD-EPI)AfAm 77.37 11/22/19 23:00 Est GFR (CKD-EPI)NonAf 66.76 11/22/19 23:00 Random Glucose 91 mg/dL (74-106) 11/22/19 23:00 Calcium 8.8 mg/dL (8.5-10.1) 11/22/19 23:00 Total Bilirubin 0.4 mg/dL (0.2-1) 11/22/19 23:00 AST 23 U/L (15-37) 11/22/19 23:00 ALT 28 U/L (13-61) 11/22/19 23:00 Alkaline Phosphatase 76 U/L (45-117) 11/22/19 23:00 Creatine Kinase 48 U/L (26-192) 11/22/19 23:00 Troponin I < 0.02 ng/ml (0.00-0.05) 11/22/19 23:00 Total Protein 7.3 g/dl (6.4-8.2) 11/22/19 23:00 Albumin 4.0 g/dl (3.4-5.0) 11/22/19 23:00 TSH 3.00 uIU/ml (0.358-3.74) 11/22/19 23:00 Electrolytes unremarkable Normal Cr No transaminitis Normal TSH Tpn undetectable UA consistent with infection EKG: rate 64, QTc 412, NSR, twi in lead III also present in previous EKG performed on 08/26/2019 CXR as read by radiology:"EXAM#: TYPE/EXAM: RESULT: [id number] RAD/CHEST PA LAT Chest: Weakness 2 views of the chest reveal clear lungs, sclerotic knob, normal peter and prominent heart. The angles are sharp. The bones and soft tissues are intact. Since 08/26/2019 there is no change of an adverse nature. Impression: No acute chest pathology. Reported By: Tigre Mandel MD 11/23/19 0634 " Repeat BP is 169/88 Keflex sent to pharmacy for UTI Patient to follow up with primary care physician Return precautions Stable for discharge Past History - Past Medical History Allergies/Adverse Reactions: Allergies Allergy/AdvReac Type Severity Reaction Status Date / Time No Known Allergies Allergy Verified 11/22/19 20:44 Home Medications: Ambulatory Orders Fluoxetine HCl [Prozac] 20 mg PO DAILY 07/26/16 Pantoprazole Sodium 40 mg PO DAILY 07/26/16 Losartan Potassium [Cozaar -] 50 mg PO DAILY 09/23/18 Multivitamin [One-Daily Multi-Vitamin] 1 each PO DAILY 09/27/18 Cephalexin [Keflex] 500 mg PO BID #14 capsule 06/22/19 Cephalexin [Keflex] 500 mg PO QID 7 Days #28 capsule 06/22/19 Ferrous Sulfate [Iron] 325 mg PO ASDIR 06/22/19 Meclizine HCl 25 mg PO BID PRN #30 tablet 08/26/19 Cephalexin [Keflex] 500 mg PO BID #14 capsule 11/23/19 Anemia: Yes Asthma: No Cancer: No Cardiac Disorders: No CVA: No COPD: No CHF: No Dementia: No Diabetes: No GI Disorders: Yes Disorders: No HTN: Yes Hypercholesterolemia: No Liver Disease: No Psychiatric Problems: Yes (DEPRESSION) Seizures: No Thyroid Disease: No - Surgical History Abdominal Surgery: No Appendectomy: No Cardiac Surgery: No Cholecystectomy: No Lung Surgery: No Neurologic Surgery: No Orthopedic Surgery: Yes (ACHILLES TENDON SX LEFT , TKR LEFT) - Psycho Social/Smoking Cessation Hx Smoking Status: No Smoking History: Never smoked Have you smoked in the past 12 months: No Number of Cigarettes Smoked Daily: 0 If you are a former smoker, when did you quit?: 20 YEARS AGO Hx Alcohol Use: No Drug/Substance Use Hx: No Substance Use Type: None Hx Substance Use Treatment: No *Physical Exam - Vital Signs Last Vital Signs Temp Pulse Resp BP Pulse Ox 97.5 F L 73 18 202/80 H 97 11/22/19 20:41 11/22/19 20:41 11/22/19 20:41 11/22/19 20:41 11/22/19 20:41 ED Treatment Course - LABORATORY CBC & Chemistry Diagram: 11/22/19 23:00 11/22/19 23:00 Discharge - Discharge Information Problems reviewed: Yes Clinical Impression/Diagnosis: Hypertension Qualifiers: Hypertension type: unspecified Qualified Code(s): I10 - Essential (primary) hypertension UTI (urinary tract infection) Qualifiers: Urinary tract infection type: site unspecified Hematuria presence: with hematuria Qualified Code(s): N39.0 - Urinary tract infection, site not specified; R31.9 - Hematuria, unspecified Condition: Stable Disposition: HOME - Additional Discharge Information Prescriptions: Cephalexin [Keflex] 500 mg PO BID #14 capsule - Follow up/Referral - Patient Discharge Instructions Patient Printed Discharge Instructions: DI for Urinary Tract Infection (UTI) Additional Instructions: You came into the emergency department for weakness and high blood pressure readings. Blood work, Xray, and EKG did not indicate acute pathology. Urinalysis showed that you have an infection. Antibiotics sent to your pharmacy. Take as instructed. Continue taking home medications as prescribed. Follow-up with a primary care provider this week to discuss this ED visit and to further evaluate your symptoms. Your workup is not complete until you do so. Call and make an appointment at the number provided. Immediate medical attention is required if: you pass out, have any chest pain, shortness of breath, severe headaches, changes in vision, focal numbness or weakness, any severe abdominal pain, any black tarry stool, or any new or concerning symptoms. If you think you are having an emergency, call for emergency medical services or present to the emergency department right away. - Post Discharge Activity
[2019-11-22 23:05] LABS: EPI CELLS 4 /uL (0-25.1); HYALINE CASTS 0 /uL (0-3.1); URINE APPEARANCE CLEAR; URINE BACTERIA 29 /uL (0-1359); URINE BILIRUBIN NEGATIVE (NEGATIVE); URINE COLOR YELLOW; URINE GLUCOSE (UA) NEGATIVE (NEGATIVE); URINE KETONE NEGATIVE (NEGATIVE); URINE LEUK ESTERASE 1+ (NEGATIVE); URINE NITRITE NEGATIVE (NEGATIVE); URINE PROTEIN NEGATIVE (NEGATIVE); URINE RBC 25 /uL (0-23.9); URINE UROBILINOGEN 0.2 mg/dL (0.2-1.0); URINE WBC 72 /uL (0-25.8)
[2019-11-22 23:15] LABS: BASO % 0.5 % (0-2.0); EOS % 8.2 % (0-4.5); HEMATOCRIT 43.5 % (32.4-45.2); HEMOGLOBIN 14.9 GM/dL (10.7-15.3); LYMPH % 26.8 % (8-40); MCH 31.9 pg (25.7-33.7); MCHC 34.3 g/dl (32.0-36.0); MEAN CELL VOLUME 92.9 fl (80-96); MEAN PLT VOLUME 6.1 fl (7.5-11.1); MONO % 11.4 % (3.8-10.2); NEUT % 53.1 % (42.8-82.8); PLATELET COUNT 266 K/MM3 (134-434); RBC 4.68 M/mm3 (3.60-5.2); RDW 13.7 % (11.6-15.6)
[2019-11-22 23:22] LABS: INR 0.95 (0.83-1.09); PROTHROMBIN TIME (PATIENT) 11.2 SEC (9.7-13.0)
[2019-11-22 23:34] LABS: ALK PHOS 76 U/L (45-117); ANION GAP 6 MMOL/L (8-16); BILIRUBIN,TOTAL 0.4 mg/dL (0.2-1); BLOOD UREA NITROGEN 22.2 mg/dL (7-18); CALCIUM 8.8 mg/dL (8.5-10.1); CHLORIDE 105 mmol/L (98-107); CO2 28 mmol/L (21-32); CREATININE 0.8 mg/dL (0.55-1.3); GLUCOSE,RANDOM 91 mg/dL (74-106); SGOT/AST 23 U/L (15-37); SGPT/ALT 28 U/L (13-61); SODIUM 138 mmol/L (136-145); TOT PROT 7.3 g/dl (6.4-8.2)
[2019-11-22 23:38] VITALS: BP 169/88
--- NOTE | 2019-11-22 23:51 | PDOC ---
Documentation entered by Karl Mendez SCRIBE, acting as scribe for Adrianne Palmer MD. Adrianne Palmer MD: This documentation has been prepared by the Reynaldo stanton Xhesika, SCRIBE, under my direction and personally reviewed by me in its entirety. I confirm that the documentation accurately reflects all work, treatment, procedures, and medical decision making performed by me. Attending Attestation - Resident Resident Name: NathalyUma - ED Attending Attestation I have performed the following: I have examined & evaluated the patient, The case was reviewed & discussed with the resident, I agree w/resident's findings & plan, Exceptions are as noted - HPI HPI: 11/22/19 21:16 The patient is an 84 year old female, with a significant PMH of anemia, HTN (on Losartan) and depression, who presents to the ED for "feeling tired," malaise and weakness x3/4 days. Pt states her fever was 99.6 orally. Pt states she took Aleve at 3pm. The patient denies chest pain, shortness of breath, headache and dizziness. Denies cough, nausea, vomiting, diarrhea and constipation. Denies dysuria, frequency, urgency and hematuria. Allergies: NKDA Surgical History: Left achilles tendon repair, left TKR Social History: Former smoker (quit 20 years ago). Denies EtOH or illicit drug use - Physicial Exam PE: 11/22/19 23:49 84-year-old female looking much younger than stated age came in today because of unusual fatigue for the past several days Head normocephalic atraumatic Eyes pupils are equal reactive to light and accommodation extraocular movements are intact Neck was supple, no nuchal rigidity Lungs clear to auscultation bilaterally CVS is regular rate and rhythm S1-S2 Abdomen was protuberant but nontender Extremities full range of motion, no erythema, no deformities Skin warm and dry Neuro alert and oriented x3 ambulating with ease, no gross focal neuro deficits - Medical Decision Making 11/22/19 23:50 Plan EKG, cardiac enzymes, CBC, chemistries and reassess 11/22/19 23:52 EKG is normal sinus rhythm at 64 bpm, Q's in 3 aVF noted, QTC equal to 412 11/23/19 00:24 CBC is unremarkable Chemistries normal creatinine, normal electrolytes normal glucose EKG is normal sinus rhythm and when compared to the prior EKG of August 26, 2019 there are no significant changes The patient is not having severe headaches, focal neuro deficits, headache, lower extremity edema Her labs do not reflect any end organ damage UA results ++ UTI E prescribed antibiotics to her pharmacy impression general malaise weakness UTI Discharge - Discharge Information Problems reviewed: Yes Clinical Impression/Diagnosis: Hypertension, UTI (urinary tract infection) Condition: Stable Disposition: HOME - Additional Discharge Information Prescriptions: Cephalexin [Keflex] 500 mg PO BID #14 capsule - Follow up/Referral - Patient Discharge Instructions Patient Printed Discharge Instructions: DI for Urinary Tract Infection (UTI) Additional Instructions: You came into the emergency department for weakness and high blood pressure readings. Blood work, Xray, and EKG did not indicate acute pathology. Urinalysis showed that you have an infection. Antibiotics sent to your pharmacy. Take as instructed. Continue taking home medications as prescribed. Follow-up with a primary care provider this week to discuss this ED visit and to further evaluate your symptoms. Your workup is not complete until you do so. Call and make an appointment at the number provided. Immediate medical attention is required if: you pass out, have any chest pain, shortness of breath, severe headaches, changes in vision, focal numbness or weakness, any severe abdominal pain, any black tarry stool, or any new or concerning symptoms. If you think you are having an emergency, call for emergency medical services or present to the emergency department right away. - Post Discharge Activity
--- NOTE | 2019-11-23 10:17 | EKG ---
Test Reason : Blood Pressure : / mmHG Vent. Rate : 064 BPM Atrial Rate : 064 BPM P-R Int : 148 ms QRS Dur : 082 ms QT Int : 400 ms P-R-T Axes : 063 002 016 degrees QTc Int : 412 ms NORMAL SINUS RHYTHM INFERIOR INFARCT (CITED ON OR BEFORE 22-JUN-2019) POSSIBLE ANTERIOR INFARCT (CITED ON OR BEFORE 22-JUN-2019) ABNORMAL ECG WHEN COMPARED WITH ECG OF 26-AUG-2019 19:52, NO SIGNIFICANT CHANGE WAS FOUND Confirmed by Marcus Ledesma MD ([id number]) on 11/23/2019 10:17:35 AM Referred By: Confirmed By:Marcus Ledesma MD
== END 2019-11-23 00:40 | disposition home or self-care (01) ==
LOC: JER 20:21
DX: N39.0 Urinary tract infection, site not specified (principal); I10 Essential (primary) hypertension
CPT/HCPCS: 36415; 71046-TC-FY; 80053; 81003; 82550; 84443; 84484; 85025; 85610; 87086; 93005; 93010; 99285-25

== ENCOUNTER 2020-12-13 19:45 | Emergency (ER) | payer OTHER ==
[2020-12-13 20:01] VITALS: BMI 29.2
[2020-12-14 00:09] VITALS: BP 113/61; PULSE 79; TEMP 98.6
== END 2020-12-14 00:52 | disposition home or self-care (01) ==
LOC: JER 19:45
DX: M79.605 Pain in left leg (principal)
CPT/HCPCS: 70450-TC; 73590-TC-LT-FY; 99284-25